=== PATIENT | female | born 1970 | race American Indian/Alaskan Native ===

== ENCOUNTER 2019-01-31 06:44 | Emergency (ER) | payer OTHER ==
[2019-01-31 07:03] VITALS: BP 127/67
[2019-01-31] MEDS ORDERED: TORADOL IM ONE (08:02)
--- NOTE | 2019-01-31 08:07 | Emergency Department Report ---
ED Extremity Problem HPI - General Chief complaint: Extremity Problem,Nontraumatic Stated complaint: R ARM PAIN Time Seen by Provider: 01/31/19 07:43 Source: patient Mode of arrival: Ambulatory Limitations: No Limitations - History of Present Illness Initial comments: Pt is a 48 yo female who presents to the ED with c/o right upper arm pain that began two weeks ago. She describes the pain as a throbbing sensation. She states that she woke up with it one morning. 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 she denies any fall, injury, or trauma. she denies any numbness or weakness. she has never injured this arm before. she states she had rotator cuff surgery on the left shoulder. she denies any PMHx, no allergies to meds. - Related Data Previous Rx's Medication Instructions Recorded Last Taken Type Diclofenac Sodium 25 mg PO Q6HR PRN #20 tablet. 01/31/19 Unknown Rx Allergies Allergy/AdvReac Type Severity Reaction Status Date / Time No Known Allergies Allergy Unverified 01/31/19 06:54 ED Review of Systems ROS: Stated complaint: R ARM PAIN Other details as noted in HPI Comment: All other systems reviewed and negative ED Past Medical Hx - Past Medical History Previous Medical History?: No - Surgical History Past Surgical History?: Yes Additional Surgical History: L rotator cuff sx, 2006. R knee sx, 2014. tubal ligation, 1989. c-sect x2, 1984,1988 - Social History Smoking Status: Never Smoker Substance Use Type: Alcohol - Medications Home Medications: Home Medications Medication Instructions Recorded Confirmed Last Taken Type Diclofenac Sodium 25 mg PO Q6HR PRN #20 tablet. 01/31/19 Unknown Rx ED Physical Exam - General Limitations: No Limitations General appearance: alert, in no apparent distress - Head Head exam: Present: atraumatic, normocephalic - Eye Eye exam: Present: normal appearance, PERRL - ENT ENT exam: Present: mucous membranes moist - Respiratory Respiratory exam: Present: normal lung sounds bilaterally. Absent: respiratory distress, wheezes, rales, rhonchi, stridor, chest wall tenderness, accessory muscle use, decreased breath sounds, prolonged expiratory - Cardiovascular Cardiovascular Exam: Present: regular rate, normal rhythm, normal heart sounds. Absent: systolic murmur, diastolic murmur, rubs, gallop - Extremities Exam Extremities exam: Present: other (tenderness to palpation over the medial surface of the right elbow, discomfort with flexion of the right elbow, no TTP over the lateral elbow, FROM of the fingers, wrist, elbow, and shoulder, good radial pulse, sensation intact, no significant edema present, no erythema, no increased warmth) - Neurological Exam Neurological exam: Present: alert, oriented X3 - Psychiatric Psychiatric exam: Present: normal affect, normal mood - Skin Skin exam: Present: warm, dry, intact ED Course Vital Signs 01/31/19 06:55 Temperature 98.6 F Pulse Rate 78 Respiratory 18 Rate Blood Pressure 127/67 O2 Sat by Pulse 100 Oximetry ED Medical Decision Making - EKG Data EKG shows normal: sinus rhythm, axis, intervals, QRS complexes, ST-T waves Rate: normal - Medical Decision Making Pt is a 48 yo female who presents to the ED with c/o right upper arm pain that began two weeks ago. She describes the pain as a throbbing sensation. She states that she woke up with it one morning. 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 she denies any fall, injury, or trauma. she denies any numbness or weakness. she has never injured this arm before. she states she had rotator cuff surgery on the left shoulder. she denies any PMHx, no allergies to meds. pt has TTP over the medial epicondyle. examination consistent with golfers elbow. pt given medication while in the ED for discomfort. pt given prescription for anti-inflammatory. discussed to please follow up with an orthopedic doctor in the next 2-3 days. please take medication as prescribed as needed. may use ice, rest, compression. return to the emergency room for any new or worsening symptoms. - Differential Diagnosis sprain, strain, medial epicondylitis, lateral epicondylitis Critical care attestation.: If time is entered above; I have spent that time in minutes in the direct care of this critically ill patient, excluding procedure time. ED Disposition Clinical Impression: Right elbow pain Medial epicondylitis of elbow Qualifiers: Laterality: right Qualified Code(s): M77.01 - Medial epicondylitis, right elbow Disposition: TO HOME OR SELFCARE Is pt being admited?: No Does the pt Need Aspirin: No Condition: Stable Instructions: Elbow Sprain (ED) Additional Instructions: Please follow up with an orthopedic doctor in the next 2-3 days. please take medication as prescribed as needed. may use ice, rest, compression. return to the emergency room for any new or worsening symptoms. Prescriptions: Diclofenac Sodium 25 mg PO Q6HR PRN #20 tablet.dr SWAIN Reason: Pain, Moderate (4-6) Referrals: [facility] [Provider Group] - 2-3 Days Forms: Work/School Release Form(ED) Time of Disposition: 08:08 Print Language: BULGARIAN
== END 2019-01-31 08:33 | disposition home or self-care (01) ==
LOC: ED 06:44
DX: M77.01 Medial epicondylitis, right elbow (principal)
CPT/HCPCS: 93005; 93010; 96372; 99282; J1885